=== PATIENT | female | born 1940 | race Caucasian/White ===

== ENCOUNTER 2017-12-16 10:36 | Outpatient (CLI) | payer MEDICARE, OTHER | END 2017-12-16 10:37 | disposition home or self-care (01) | LOC: BICMAMMO 10:36 | PROVIDERS: ATTEND Internal Medicine | DX: Z12.31 Encounter for screening mammogram for malignant neoplasm of breast (principal); Z80.3 Family history of malignant neoplasm of breast | CPT/HCPCS: 77063; 77067 ==

== ENCOUNTER 2018-04-03 11:10 | Outpatient (CLI) | payer MEDICARE, OTHER ==
--- NOTE | 2018-04-03 14:58 | MRI ---
LUMBAR SPINE MRI WITHOUT CONTRAST: HISTORY: Lumbar radiculopathy. Left leg pain. COMPARISON: None. CORRELATION: CT lumbar spine from 03/13/2010. TECHNIQUE: MRI lumbar spine is performed without intravenous Gadolinium administration. Multisequential, multip lanar imaging is performed. FINDINGS: There are type I and type II modic changes at the T11-T12 and T12-L1 disk spaces. No significant los s of vertebral body height. No evidence of fracture. Edema noted on the STIR sequence is due to mod ic changes. No evidence of edema due to fracture or MR evidence of a ligamentous injury. Symmetric signal intensity of the psoas muscles. Bilateral extrarenal pelves are noted. Cortical cy sts in the upper to mid pole of the right kidney are identified. There is atrophy of the right psoas muscles. The conus medullaris terminates at the inferior aspect of L1. Only appreciated on the sagittal images is an intrinsic T1 and T2 hypointense lesion without STIR hyp erintensity. This lesion corresponds to a calcified focus identified on previous CT, suggesting an i ntradural, extramedullary lesion. A calcified meningioma is favored. T12-L1: There is mild to moderate loss of disk space height. No significant central canal stenosis. The neural foramina are patent bilaterally. L1-L2: Adequate disk hydration. No significant central canal stenosis. The right neural foramen is patent. Mild left foraminal narrowing. L1 VERTEBRAL BODY: There is intrinsic T1 and T2 hyperintensity, compatible with a hemangioma. L2-L3: Desiccation without significant loss of disk space height. No significant central canal sten osis. The neural foramina are patent. L3-L4: Desiccation with mild loss of disk space height. No significant posterior disk abnormality. No significant central canal stenosis. The neural foramina are patent bilaterally. L4-L5: Desiccation with mild loss of disk space height. Generalized disk bulge, ligamentum flavum t hickening, and facet hypertrophy result in mild central canal stenosis. Moderate right and mild left neural foraminal narrowing. L5-S1: Moderate loss of disk space height. There is a central disk protrusion without significant c entral canal stenosis. There is left facet hypertrophy. The right neural foramen is patent. Modera te left foraminal narrowing due to posterior element degenerative change, as well as disk material. Of note, there appears to be disk material lateral to the L5-S1 disk space. This disk material has a ssociated osteophyte formation and is along the left aspect of the disk space. IMPRESSION: 1. Degenerative changes of the lumbar spine, as detailed above. 2. Redemonstration of an incompletely evaluated meningioma at the T10-T11 disk space. POS: MILAD
== END 2018-04-03 11:11 | disposition home or self-care (01) ==
LOC: TBSIIMAG 11:10
PROVIDERS: ATTEND Neurological Surgery
DX: M47.26 Other spondylosis with radiculopathy, lumbar region (principal); M47.27 Other spondylosis with radiculopathy, lumbosacral region
CPT/HCPCS: 72148

== ENCOUNTER 2018-04-28 14:03 | Outpatient (CLI) | payer MEDICARE, OTHER ==
--- NOTE | 2018-04-28 16:00 | MRI ---
THORACIC SPINE MRI WITH AND WITHOUT CONTRAST: HISTORY: Spinal lesion noted on recent lumbar spine imaging. COMPARISON: None. CORRELATION: CT lumbar spine from 03/13/2010. MRI lumbar spine from 04/03/2018. TECHNIQUE: An MRI of the thoracic spine is performed with and without intravenous Gadolinium administration. Mu ltisequential, multiplanar imaging is performed. FINDINGS: There is appropriate T1 marrow signal intensity of the thoracic vertebrae. Thoracic spine vertebral body height is maintained. There is no fracture. There is minima STIR hyperintensity at the T11 and T12 levels, suggesting probable type I modic change. Minimal associated enhancement. The visualized mediastinal structures and the lung parenchyma are unremarkable. Multiple right renal cysts are noted. Remaining solid organs are unremarkable. The thoracic cord has an overall normal size and signal intensity. No evidence of cord expansion or cord malacia. The conus medullaris appears to terminate at the L1 level. On the post contrast images, there is no abnormal enhancement with regard to the cord. T1-T2: Central disk bulge abuts the thecal sac and deforms the cord. At least mild central canal st enosis. T2-T3: Central disk bulge abuts the thecal sac. Mild central canal stenosis. T3-T4: No significant central canal stenosis or foraminal narrowing. T4-T5: Generalized disk bulge. Mild central canal stenosis. The neural foramina are patent. T5-T6: No significant central canal stenosis. T6-T7: Central disk bulge deforms the thecal sac. Mild to moderate central canal stenosis. T7-T8/T8-T9: Small central disk bulges. There is mild central canal stenosis at T8-T9. Mild deform ity of the ventral cord. T9-T10: No significant posterior disk abnormality. T10-T11: There is a generalized disk bulge. There is significant central canal stenosis, predominan tly due to a posterior left extradural lesion, which has intrinsic T1 hypointensity and T2 hypointens ity. There is associated enhancement. The lesion measures 0.8 cm anterior-posterior x 1 cm mediolat eral x 1 cm craniocaudal. Meningioma is favored. There is resultant severe central canal stenosis a nd mild rightward deviation of the cord. T11-T12/T12-L1: Mild degenerative change. IMPRESSION: Degenerative changes of the thoracic spine with varying degrees of central canal stenosis, as describ ed above. There is severe central canal stenosis at T10-T11, secondary to an extradural lesion along the posterior left aspect of the spinal canal, compatible with meningioma. POS: MILAD
== END 2018-04-28 14:04 | disposition home or self-care (01) ==
LOC: TBSIIMAG 14:03
PROVIDERS: ATTEND Neurological Surgery
DX: G95.9 Disease of spinal cord, unspecified (principal); M47.894 Other spondylosis, thoracic region; M48.04 Spinal stenosis, thoracic region
CPT/HCPCS: 72157; 82565

== ENCOUNTER 2019-09-15 10:29 | Outpatient (CLI) | payer MEDICARE, OTHER ==
--- NOTE | 2019-09-15 11:28 | MMO ---
Bilateral MAMMO Bilat Screen [facility]. CLINICAL HISTORY: Patient is 78 years old and is seen for screening. The patient has the following family history of breast cancer: sister, at age 68. The patient has no personal history of cancer. The patient has a history of right Excisional Biopsy in - benign. VIEWS: The views performed were: bilateral craniocaudal with tomosynthesis and bilateral mediolateral oblique with tomosynthesis. FILMS COMPARED: The present examination has been compared to prior imaging studies performed at [facility] on 02/01/2011, 02/01/2012 and 12/16/2017, and at [facility] on 09/15/2008. This study has been interpreted with the assistance of computer-aided detection. MAMMOGRAM FINDINGS: There are scattered fibroglandular densities. There are no suspicious masses, suspicious calcifications, or new areas of architectural distortion. IMPRESSION: THERE IS NO MAMMOGRAPHIC EVIDENCE OF MALIGNANCY. A ROUTINE FOLLOW-UP MAMMOGRAM IN 1 YEAR IS RECOMMENDED. THE RESULTS OF THIS EXAM WERE SENT TO THE PATIENT. ACR BI-RADS Category 1 - Negative MAMMOGRAPHY NOTE: 1. A negative mammogram report should not delay a biopsy if a dominant of clinically suspicious mass is present. 2. Approximately 10% to 15% of breast cancers are not detected by mammography. 3. Adenosis and dense breasts may obscure an underlying neoplasm. Reported by: GIFTY LEONARD MD Electonically Signed: [id number]
== END 2019-09-15 10:30 | disposition home or self-care (01) ==
LOC: BICMAMMO 10:29
PROVIDERS: ATTEND Internal Medicine
DX: Z12.31 Encounter for screening mammogram for malignant neoplasm of breast (principal); Z80.3 Family history of malignant neoplasm of breast; Z91.89 Other specified personal risk factors, not elsewhere classified
CPT/HCPCS: 77063; 77067